=== PATIENT | female | born 1975 ===

== ENCOUNTER 2021-09-12 02:03 | Observation (INO) ==
[2021-09-12] MEDS ORDERED: ACETAMINOPHEN 325 MG TABLET PO PRN (03:33)
[2021-09-12] MEDS ORDERED: GLUCAGON 1 MG VIAL IM PRN (03:33)
[2021-09-12] MEDS ORDERED: ONDANSETRON 4 MG/2 ML VIAL IV PRN (03:33)
[2021-09-12] MEDS ORDERED: DEXTROSE 10% 250 ML BAG IV PRN (03:44)
[2021-09-12] MEDS ORDERED: ASPIRIN 325 MG TABLET PO STA (03:59)
[2021-09-12 04:12] LABS: Basophils % 0.7 % (0.0-0.8); Eosinophils # 0.3 10*3/uL (0.0-0.87); Eosinophils % 4.9 % (0.00-10.9); Hematocrit 34.2 VOL% (35.7-47.0); Hemoglobin 11.6 GM/DL (12.0-16.0); Immature Granulocytes % 0.4 %; Immature Granulocytes Absolute 0.02 #; Lymphocytes # 2.5 10*3/uL (1.4-4.0); Lymphocytes % 46.5 % (21.3-54.2); Mean Corpuscular HGB Conc 33.9 GM/DL (32-36); Mean Corpuscular Volume 98.8 FL (87-102); Mean Platelet Volume 9.8 FL (9.6-12.0); Monocytes # 0.5 10*3/uL (0.11-0.8); Monocytes % 9.3 % (1.7-12.7); Neutrophils % 38.2 % (38.7-73.9); Platelet Count 89 T/CUMM (130-400); Red Blood Count 3.46 MC/CUMM (3.8-5.5); Red Cell Distribution Width 14.9 % (9.3-17.3); White Blood Count 5.4 T/CUMM (4-12)
[2021-09-12 04:18] LABS: Bacteria,Urine Occasional /HPF (Few); Mucus,Urine Occasional /LPF (Occasional); Squamous Epithelial Cell,Urine Occasional /HPF (0-10); Urine Appearance Clear (Clear); Urine Color Yellow (Yellow)
[2021-09-12 04:19] LABS: Bilirubin,Urine Small mg/dL (Negative); Blood, Urine Negative (Negative); Glucose,Urine (UA) 100 mg/dL (Negative); Ketones,Urine Trace mg/dL (Negative); Nitrite,Urine Negative (Negative); Protein,Urine Negative (Negative); Urine Urobilinogen >= 8.0 eU/dL (<2.0)
[2021-09-12 04:20] LABS: INR 1.3; PT Patient Result 13.7 SECS (10.5-12.0)
[2021-09-12 04:33] LABS: Eosinophils 2 % (0-10); Lymphocytes 45 % (20-55); Platelet Estimate Decreased; Total Cells Counted 100
[2021-09-12 04:44] LABS: Albumin 2.2 G/DL (3.4-5.0); Bilirubin,Total 2.3 MG/DL (0.20-1.00); Calcium 8.1 MG/DL (8.5-10.1); Osmolality,Calculated 292.3 MOS/KG (273-304); Potassium 3.6 MMOL/L (3.5-5.1); Risk Ratio 2.82; Thyroid Stimulating Hormone 3.54 uIU/ml (0.358-3.74); Total Protein 5.6 G/DL (6.4-8.2); VLDL Cholesterol 8.4 MG/DL
[2021-09-12] MEDS ORDERED: LACTULOSE 20 GM/30 ML UDCUP PO ONE (04:46)
[2021-09-12] MEDS ORDERED: MAGNESIUM SULF RIDER 2 GM/50 ML PREMIX IV ONE (07:22)
[2021-09-12] MEDS: SPIRONOLACTONE 100 MG TABLET PO SCH (09:47)
[2021-09-12] MEDS: PANTOPRAZOLE 40 MG TABLET PO SCH (09:47)
[2021-09-12] MEDS: FUROSEMIDE 20 MG TABLET PO SCH (09:47)
[2021-09-12] MEDS ORDERED: REGADENOSON 0.4 MG/5 ML SYRINGE IV ONE (12:44)
[2021-09-13 06:24] LABS: Eosinophils # 0.2 10*3/uL (0.0-0.87); Eosinophils % 4.6 % (0.00-10.9); Hematocrit 30.5 VOL% (35.7-47.0); Hemoglobin 10.5 GM/DL (12.0-16.0); Immature Granulocytes % 0.2 %; Immature Granulocytes Absolute 0.01 #; Lymphocytes # 1.7 10*3/uL (1.4-4.0); Lymphocytes % 40.1 % (21.3-54.2); Mean Corpuscular HGB Conc 34.4 GM/DL (32-36); Mean Corpuscular Volume 98.1 FL (87-102); Mean Platelet Volume 9.6 FL (9.6-12.0); Monocytes # 0.3 10*3/uL (0.11-0.8); Monocytes % 8.2 % (1.7-12.7); Neutrophils % 45.9 % (38.7-73.9); Platelet Count 85 T/CUMM (130-400); Red Blood Count 3.11 MC/CUMM (3.8-5.5); Red Cell Distribution Width 14.9 % (9.3-17.3); White Blood Count 4.1 T/CUMM (4-12)
[2021-09-13 06:37] LABS: Calcium 8.3 MG/DL (8.5-10.1); Osmolality,Calculated 284.8 MOS/KG (273-304); Potassium 3.7 MMOL/L (3.5-5.1)
[2021-09-13 06:56] LABS: Platelet Estimate Decreased
[2021-09-13] MEDS ORDERED: ASPIRIN EC 81 MG TABLET PO SCH (09:00)
[2021-09-13] MEDS: PANTOPRAZOLE 40 MG TABLET PO SCH (09:02)
[2021-09-13] MEDS: SPIRONOLACTONE 100 MG TABLET PO SCH (09:02)
[2021-09-13] MEDS: FUROSEMIDE 20 MG TABLET PO SCH (09:03)
[2021-09-13 12:25] VITALS: BP 102/57
== END 2021-09-13 13:30 | disposition home or self-care (01) ==
LOC: EDUNIT# → EDBD → N.5E 02:03 → N.ED 02:03 → N.5E 04:27
PROVIDERS: ADMIT Internal Medicine; ATTEND Internal Medicine